=== PATIENT | male | born 1955 | race Caucasian/White ===

== ENCOUNTER 2018-03-13 13:03 | Emergency (ER) | payer MEDICAID, OTHER ==
--- NOTE | 2018-03-13 14:33 | C.PDOC ---
History Of Present Illness 62 year old male presents to ED for evaluation of left hand injury s/p fall yesterday. Denies hitting head during fall, neck pain, headache, dizziness. Time Seen by Provider: 03/13/18 13:36 Chief Complaint (Nursing): Upper Extremity Problem/Injury History Per: Patient History/Exam Limitations: no limitations Onset/Duration Of Symptoms: Hrs Current Symptoms Are (Timing): Still Present Past Medical History Reviewed: Historical Data, Nursing Documentation, Vital Signs Vital Signs: Last Vital Signs Temp 98.5 F 03/13/18 13:16 Pulse 74 03/13/18 13:16 Resp 16 03/13/18 13:16 BP 150/89 03/13/18 13:16 Pulse Ox 98 03/13/18 13:16 Surgical History: No Surg Hx Family History: States: No Known Family Hx - Social History Hx Alcohol Use: No Hx Substance Use: No - Immunization History Hx Tetanus Toxoid Vaccination: No Hx Influenza Vaccination: No Hx Pneumococcal Vaccination: No Review Of Systems Except As Marked, All Systems Reviewed And Found Negative. Musculoskeletal: Negative for: Neck Pain Neurological: Negative for: Headache, Dizziness Physical Exam - Physical Exam Appears: Well, Non-toxic, No Acute Distress Skin: Warm, Dry Head: Atraumatic Eye(s): bilateral: Normal Inspection, PERRL, EOMI Neck: Supple Chest: Symmetrical, No Deformity Cardiovascular: Rhythm Regular Respiratory: Normal Breath Sounds, No Rales, No Rhonchi, No Wheezing Extremity: Normal ROM, Tenderness (Pain around left wrist.), Capillary Refill (less 2 sec), No Deformity, Swelling (mild L wrist) Neurological/Psych: Oriented x3, Normal Speech, Normal Motor, Normal Sensation ED Course And Treatment O2 Sat by Pulse Oximetry: 98 (RA) Pulse Ox Interpretation: Normal - Other Rad x-ray left wrist X-Ray: Interpreted by Me, Viewed By Me Interpretation: FINDINGS: BONES: Normal. No fracture. JOINTS: Normal. No dislocation. SOFT TISSUES: Normal. OTHER FINDINGS: None. IMPRESSION: Normal left wrist radiographs. Reassessment Condition: Improved Medical Decision Making Medical Decision Making: Plan: * Tylenol * X-ray left wrist * Velcro wrist splint was placed Disposition Counseled Patient/Family Regarding: Studies Performed, Diagnosis, Need For Followup, Rx Given - Disposition Referrals: Prabhu Hernandez MD [Staff Provider] - [facility] [address] [Outside] [facility] [Outside] Disposition: HOME/ ROUTINE Disposition Time: 15:02 Condition: STABLE Additional Instructions: CALL FOR A FOLLOW UP APPT WITH ORTHOPEDIST ON THURSDAY FOR RE-EVALUATION AND OFFICIAL XRAY REPORT. IF SYMPTOMS GET WORSE OR ANY NEW CONCERNING SYMPTOMS DEVELOP RETURN TO E. D. Prescriptions: Ibuprofen [Motrin Tab] 1 tab PO Q6H PRN #15 tab PRN Reason: Pain, Moderate (4-7) Instructions: Wrist Sprain (DC) Forms: [facility] (Slovenian), General Discharge Instructions - Clinical Impression Clinical Impression: Sprain of wrist, left - PA / [employer] ARCHITECT / Resident Statement MD/DO has reviewed & agrees with the documentation as recorded. - Scribe Statement The provider has reviewed the documentation as recorded by the Scribe Sunny Sanchez All medical record entries made by the Scribe were at my direction and personally dictated by me. I have reviewed the chart and agree that the record accurately reflects my personal performance of the history, physical exam, medical decision making, and the department course for this patient. I have also personally directed, reviewed, and agree with the discharge instructions and disposition.
[2018-03-13 15:17] VITALS: BP 148/78; PULSE 76; RESP 18; TEMP 98.4
--- NOTE | 2018-03-13 16:11 | RAD ---
Date of service: 03/13/2018 PROCEDURE: Left Wrist Radiographs. HISTORY: PAIN P FALL COMPARISON: None. FINDINGS: BONES: Normal. No fracture. JOINTS: Normal. No dislocation. SOFT TISSUES: Normal. OTHER FINDINGS: None. IMPRESSION: Normal left wrist radiographs.
[2018-03-13 20:53] VITALS: O2SAT 98
== END 2018-03-13 15:16 | disposition home or self-care (01) ==
LOC: C.ER 13:03
DX: S63.502A Unspecified sprain of left wrist, initial encounter (principal); W19.XXXA Unspecified fall, initial encounter